=== PATIENT | male | born 1970 | race Hispanic/Latino ===

== ENCOUNTER 2017-05-07 00:06 | Emergency (ER) | payer BC ==
[~2017-05-07] VITALS: Ht 177.8 cm; Wt 88.5 kg
[2017-05-07] MEDS ORDERED: CLARITIN10 MG PO (00:22)
[2017-05-07] MEDS ORDERED: AFRIN15 ML NAS (00:22)
[2017-05-07] MEDS ORDERED: NAPROXEN375 M1 PO (00:23)
[2017-05-07] MEDS ORDERED: GUAIFENESIN AC473 ML PO (01:51)
== END 2017-05-07 02:07 | disposition home or self-care (01) ==
LOC: ED 00:06
DX: J40 Bronchitis, not specified as acute or chronic (principal); Z79.899 Other long term (current) drug therapy
CPT/HCPCS: 71020; 99283